=== PATIENT | female | born 1940 | race Caucasian/White ===

== ENCOUNTER 2024-03-16 22:46 | Inpatient (IN) | payer OTHER ==
[~2024-03-16] VITALS: Ht 167.6 cm; Wt 65.8 kg
[2024-03-16] MEDS: UNRESOLVED CLARIFICATION ENTRY XX STA (23:04)
[2024-03-16 23:26] LABS: BASO % 0.3 % (0.0-1.0); EOS # 0.1 10^3/uL (0.0-0.5); EOS % 0.9 % (0.0-3.0); HEMATOCRIT 39.2 % (36.0-47.0); HEMOGLOBIN 12.8 g/dl (12.0-15.5); LYMPH # 1.1 10^3/uL (1.5-5.0); LYMPH % 10.3 % (24.0-44.0); MEAN CORPUSCULAR HEMOGLOBIN 31.9 pg (27.0-33.0); MEAN CORPUSCULAR HGB CONC 32.7 g/dl (32.0-36.5); MEAN CORPUSCULAR VOLUME 97.8 fl (80.0-96.0); MONO # 0.6 10^3/uL (0.0-0.8); MONO % 5.7 % (2.0-8.0); NEUTROPHILS # 8.8 10^3/uL (1.5-8.5); NEUTROPHILS % 81.8 % (36.0-66.0); PLATELET COUNT, AUTOMATED 198 10^3/uL (150-450); RED BLOOD COUNT 4.01 10^6/uL (4.00-5.40); WHITE BLOOD COUNT 10.8 10^3/uL (4.0-10.0)
[2024-03-16 23:40] LABS: PROTHROMBIN TIME 12.9 SECONDS (12.5-14.5)
[2024-03-16 23:45] LABS: ALBUMIN 3.8 G/DL (3.2-5.2); BILIRUBIN,TOTAL 0.5 MG/DL (0.3-1.2); CALCIUM LEVEL 8.5 MG/DL (8.3-10.6); CK-MB VALUE MASS 2.8 NG/ML (<3.6); CREATININE FOR GFR 0.97 MG/DL (0.55-1.30); GLOMERULAR FILTRATION RATE 58.2 (>32); MB/CK RELATIVE INDEX 2.59 (< OR =4); POTASSIUM SERUM 4.4 MMOL/L (3.5-5.1); TOTAL PROTEIN 6.2 G/DL (5.7-8.2)
[2024-03-17] VITALS (29 sets, daily range): BP systolic 90–122; BP diastolic 52–64; PULSE 93; TEMP 96.9–99.1; O2SAT 89–96
[2024-03-17] MEDS: MORPHINE 2 MG/ML 1ML VIAL IV ONE (00:03)
[2024-03-17] MEDS: ONDANSETRON 4MG 2ML VIAL IV ONE (00:06)
[2024-03-17] MEDS ORDERED: ALEN70TA82 PO (01:42)
[2024-03-17] MEDS ORDERED: RA N1TAB PO (01:42)
[2024-03-17] MEDS ORDERED: ASPI-615 PO (01:42)
[2024-03-17] MEDS ORDERED: SIMV10TA21 PO (01:42)
[2024-03-17] MEDS ORDERED: IRON1TAB2 PO (01:42)
[2024-03-17] MEDS ORDERED: THERTAB52 PO (01:42)
[2024-03-17] MEDS ORDERED: SYMB16INH INH (01:42)
[2024-03-17] MEDS ORDERED: FLUO-365 PO (01:42)
[2024-03-17] MEDS ORDERED: MYRB25TA PO (01:42)
[2024-03-17] MEDS ORDERED: LOSA50TA28 PO (01:42)
[2024-03-17] MEDS ORDERED: HOME MED LIST COMPLETE! XX SCH (02:05)
[2024-03-17] MEDS: HYDROMORPHONE HCL 0.5 MG/ 0.5 ML SYRINGE IV PRN (02:29)
[2024-03-17] MEDS: UNRESOLVED CLARIFICATION ENTRY XX STA (04:34)
[2024-03-17] MEDS ORDERED: ACETAMINOPHEN 500 MG TAB PO PRN (07:20)
[2024-03-17] MEDS: SYMBICORT 160/4.5MCG INHALER 6GM INH SCH (07:30)
[2024-03-17] MEDS ORDERED: LOSARTAN 50MG TABLET PO SCH (09:00)
[2024-03-17] MEDS: ASPIRIN 81MG ENTERIC TABLET PO SCH (10:01)
[2024-03-17] MEDS: FERROUS SULFATE 325MG TAB PO SCH (10:01)
[2024-03-17] MEDS: KETOROLAC 30 MG/ML 1ML VIAL IV PRN (10:01)
[2024-03-17] MEDS: DOCUSATE SODIUM 100MG CAPSULE PO SCH (10:01)
[2024-03-17] MEDS: MAGNESIUM OXIDE 400MG TAB (MAG-OX) PO SCH (10:01)
[2024-03-17] MEDS: SENNA 8.6 MG TAB (SENOKOT) PO SCH ×2 (10:01→20:33)
[2024-03-17] MEDS: ENOXAPARIN 40MG/0.4ML SYRINGE (J1650 PER 10MG) SC SCH (10:02)
[2024-03-17] MEDS: ACETAMINOPHEN *IV* 1,000 MG in IV 1 EA IV ONE (13:21)
[2024-03-17] MEDS: METOPROLOL 5 MG/5 ML VIAL IV SCH (14:45)
[2024-03-17] MEDS: PANTOPRAZOLE 40MG VIAL IV SCH (15:20)
[2024-03-17 15:25] LABS: CK-MB VALUE MASS 14.6 NG/ML (<3.6)
[2024-03-17 15:27] LABS: MB/CK RELATIVE INDEX 3.13 (< OR =4)
[2024-03-17] MEDS: METOPROLOL TART 12.5 MG PER 1/2 TAB PO SCH (16:00)
[2024-03-17] MEDS: DIGOXIN 0.25 MG TAB PO ONE (17:31)
[2024-03-17 19:10] LABS: CK-MB VALUE MASS 11.7 NG/ML (<3.6)
[2024-03-17 19:16] LABS: MB/CK RELATIVE INDEX 2.57 (< OR =4)
[2024-03-17] MEDS: SIMVASTATIN 10 MG TAB PO SCH (20:33)
[2024-03-17] MEDS: FLUoxetine 20MG CAP PO SCH (20:33)
[2024-03-18] VITALS (23 sets, daily range): BP systolic 92–134; BP diastolic 52–60; TEMP 96.9–101.6; O2SAT 87–95
[2024-03-18 06:07] LABS: HEMATOCRIT 40.8 % (36.0-47.0); HEMOGLOBIN 12.7 g/dl (12.0-15.5); MEAN CORPUSCULAR HEMOGLOBIN 32.2 pg (27.0-33.0); MEAN CORPUSCULAR HGB CONC 31.1 g/dl (32.0-36.5); MEAN CORPUSCULAR VOLUME 103.3 fl (80.0-96.0); PLATELET COUNT, AUTOMATED 159 10^3/uL (150-450); RED BLOOD COUNT 3.95 10^6/uL (4.00-5.40); WHITE BLOOD COUNT 7.2 10^3/uL (4.0-10.0)
[2024-03-18 06:33] LABS: ALBUMIN 3.2 G/DL (3.2-5.2); BILIRUBIN,TOTAL 0.7 MG/DL (0.3-1.2); CREATININE FOR GFR 1.24 MG/DL (0.55-1.30); GLOMERULAR FILTRATION RATE 43.9 (>32); POTASSIUM SERUM 4.3 MMOL/L (3.5-5.1); TOTAL PROTEIN 5.4 G/DL (5.7-8.2)
[2024-03-18] MEDS: MORPHINE 4 MG/ML 1ML VIAL IV PRN (07:43)
[2024-03-18] MEDS: ACETAMINOPHEN TAB 650MG DOSE (2X325MG) PO PRN (07:44)
[2024-03-18] MEDS: DIGOXIN 0.25 MG TAB PO SCH (08:50)
[2024-03-19] VITALS (11 sets, daily range): BP systolic 101–117; BP diastolic 50–68; TEMP 97.2–98.9; O2SAT 82–93
[2024-03-19] MEDS: PANTOPRAZOLE 40MG TAB (PROTONIX) PO SCH (08:15)
[2024-03-19] MEDS: NORCO, ANEXSIA 5/325MG TABLET (HYDROcodone/ACETAMINOPHEN) PO SCH (09:44)
[2024-03-19] MEDS: METOPROLOL TART 12.5 MG PER 1/2 TAB PO SCH (18:40)
[2024-03-19] MEDS: DIGOXIN 0.25 MG TAB PO ONE (18:41)
[2024-03-19] MEDS ORDERED: METOPROLOL TART 12.5 MG PER 1/2 TAB PO SCH (21:00)
[2024-03-20] VITALS (19 sets, daily range): BP systolic 99–120; BP diastolic 54–58; TEMP 96.7–97.6; O2SAT 91–95
[2024-03-20] MEDS: DIGOXIN 0.25 MG TAB PO SCH (09:24)
[2024-03-20] MEDS: METOPROLOL TART 12.5 MG PER 1/2 TAB PO SCH (14:44)
[2024-03-20] MEDS: SENNA 8.6 MG TAB (SENOKOT) PO SCH (20:24)
[2024-03-21] VITALS: BP 128/62; TEMP 97.2; O2SAT 93
[2024-03-21 05:26] LABS: BASO % 0.3 % (0.0-1.0); EOS # 0.3 10^3/uL (0.0-0.5); EOS % 4.8 % (0.0-3.0); HEMOGLOBIN 10.6 g/dl (12.0-15.5); LYMPH # 0.6 10^3/uL (1.5-5.0); LYMPH % 9.8 % (24.0-44.0); MEAN CORPUSCULAR HEMOGLOBIN 31.7 pg (27.0-33.0); MEAN CORPUSCULAR HGB CONC 33.1 g/dl (32.0-36.5); MEAN CORPUSCULAR VOLUME 95.8 fl (80.0-96.0); MONO # 0.6 10^3/uL (0.0-0.8); MONO % 9.5 % (2.0-8.0); NEUTROPHILS # 4.9 10^3/uL (1.5-8.5); NEUTROPHILS % 75.1 % (36.0-66.0); PLATELET COUNT, AUTOMATED 185 10^3/uL (150-450); RED BLOOD COUNT 3.34 10^6/uL (4.00-5.40); WHITE BLOOD COUNT 6.5 10^3/uL (4.0-10.0)
[2024-03-21 05:58] LABS: DIGOXIN LEVEL 1.4 NG/ML (0.8-2.0)
[2024-03-21 05:59] LABS: CALCIUM LEVEL 8.1 MG/DL (8.3-10.6); CREATININE FOR GFR 1.19 MG/DL (0.55-1.30); POTASSIUM SERUM 4.3 MMOL/L (3.5-5.1)
[2024-03-21] MEDS: DIGOXIN 0.125 MG TAB PO SCH (10:13)
[2024-03-21 12:00] VITALS: BP 122/60; TEMP 97.2; O2SAT 92
[2024-03-21 13:04] VITALS: BP 122/56
[2024-03-21] MEDS ORDERED: COLA100C5 PO (14:07)
[2024-03-21] MEDS ORDERED: HYDR-3715 PO (14:07)
[2024-03-21] MEDS ORDERED: DIGO0.123 PO (14:07)
[2024-03-21] MEDS ORDERED: METO1TAB87 PO (14:07)
[2024-03-21] MEDS ORDERED: SENO8.6T5 PO (14:07)
[2024-03-21] MEDS ORDERED: KETO10TAB PO (14:09)
[2024-03-21] MEDS ORDERED: ACET1TAB55 PO (14:09)
== END 2024-03-21 16:19 | DRG 536 ==
LOC: M ED 22:46 → EDBD 22:46 → M ED INP 03-17 00:56 → M PCU 03-17 02:24
PROVIDERS: ADMIT Preventive Medicine Undersea and Hyperbaric Medicine; ATTEND Internal Medicine Nephrology
DX: S32.512A Fracture of superior rim of left pubis, initial encounter for closed fracture (principal); J96.11 Chronic respiratory failure with hypoxia; J44.9 Chronic obstructive pulmonary disease, unspecified; I10 Essential (primary) hypertension; I48.0 Paroxysmal atrial fibrillation; E78.5 Hyperlipidemia, unspecified; Z96.641 Presence of right artificial hip joint; Z96.651 Presence of right artificial knee joint; M81.0 Age-related osteoporosis without current pathological fracture; F41.9 Anxiety disorder, unspecified; F32.A Depression, unspecified; N32.81 Overactive bladder; W18.09XA Striking against other object with subsequent fall, initial encounter; Y92.009 Unspecified place in unspecified non-institutional (private) residence as the place of occurrence of the external cause; E61.1 Iron deficiency; Z88.0 Allergy status to penicillin; Z79.899 Other long term (current) drug therapy; Z79.82 Long term (current) use of aspirin

== ENCOUNTER → 2024-04-05 | Outpatient (CLI) | payer OTHER, MEDICARE ==
[~2024-04-05] MED LIST: ACET1TAB55 PO; ALEN70TA82 PO; ASPI-615 PO; COLA100C5 PO; DIGO0.123 PO; FLUO-365 PO; HYDR-3715 PO; IRON1TAB2 PO; KETO10TAB PO; LOSA50TA28 PO; METO1TAB87 PO; MYRB25TA PO; RA N1TAB PO; SENO8.6T5 PO; SIMV10TA21 PO; SYMB16INH INH; THERTAB52 PO
== END ==
LOC: M SOG 08:18
PROVIDERS: ATTEND Physician Assistant
DX: S32.502A Unspecified fracture of left pubis, initial encounter for closed fracture (principal); Y93.9 Activity, unspecified; Y92.9 Unspecified place or not applicable

== ENCOUNTER 2024-04-19 10:48 | Emergency (ER) | payer MEDICARE, OTHER ==
[~2024-04-19] VITALS: Ht 162.6 cm; Wt 63.2 kg
[2024-04-19 11:44] LABS: BASO % 0.5 % (0.0-1.0); EOS % 0.5 % (0.0-3.0); HEMATOCRIT 36.1 % (36.0-47.0); HEMOGLOBIN 11.8 g/dl (12.0-15.5); LYMPH # 0.7 10^3/uL (1.5-5.0); LYMPH % 8.4 % (24.0-44.0); MEAN CORPUSCULAR HEMOGLOBIN 32.7 pg (27.0-33.0); MEAN CORPUSCULAR HGB CONC 32.7 g/dl (32.0-36.5); MONO # 0.6 10^3/uL (0.0-0.8); MONO % 6.9 % (2.0-8.0); NEUTROPHILS # 6.9 10^3/uL (1.5-8.5); NEUTROPHILS % 83.2 % (36.0-66.0); PLATELET COUNT, AUTOMATED 396 10^3/uL (150-450); RED BLOOD COUNT 3.61 10^6/uL (4.00-5.40); WHITE BLOOD COUNT 8.2 10^3/uL (4.0-10.0)
[2024-04-19 12:09] LABS: INR 1.28; PROTHROMBIN TIME 15.6 SECONDS (12.5-14.5)
[2024-04-19 12:11] LABS: ALBUMIN 3.8 G/DL (3.2-5.2); ALKALINE PHOSPHATASE 141 U/L (46-116); ALT/SGPT 21 U/L (7.0-40); AST/SGOT 18 U/L (<34); BILIRUBIN,DIRECT 0.2 MG/DL (<0.4); BILIRUBIN,TOTAL 0.4 MG/DL (0.3-1.2); BLOOD UREA NITROGEN 13 MG/DL (9-23); CARBON DIOXIDE LEVEL 25 MMOL/L (20-31); CHLORIDE LEVEL 104 MMOL/L (98-107); CK-MB VALUE MASS 3.9 NG/ML (<3.6); CPK CREATINE PHOSPHOKINASE 73 U/L (34-145); CREATININE FOR GFR 0.67 MG/DL (0.55-1.30); GLOMERULAR FILTRATION RATE > 60.0 (>32); GLUCOSE, FASTING 103 MG/DL (74-106); MB/CK RELATIVE INDEX 5.34 (< OR =4); POTASSIUM SERUM 4.2 MMOL/L (3.5-5.1); SODIUM LEVEL 138 MMOL/L (136-145); TOTAL PROTEIN 6.7 G/DL (5.7-8.2)
[2024-04-19 12:27] LABS: APPEARANCE, URINE HAZY (CLEAR); BACTERIA, URINE AUTO 1+ (NEGATIVE); BILIRUBIN, URINE AUTO NEGATIVE (NEGATIVE); BLOOD, URINE BLOOD NEGATIVE (NEGATIVE); COLOR, URINE YELLOW (YELLOW); GLUCOSE, URINE (UA) AUTO NEGATIVE (NEGATIVE); KETONE, URINE AUTO 1+ mg/dL (NEGATIVE); LEUKOCYTE ESTERASE, URINE AUTO 2+ (NEGATIVE); MUCUS, URINE SMALL (NEGATIVE); NITRITE, URINE AUTO POSITIVE (NEGATIVE); PROTEIN, URINE AUTO NEGATIVE (NEGATIVE); RBC, URINE AUTO 3 /HPF (0-3); SPECIFIC GRAVITY URINE AUTO 1.013 (1.002-1.035); SQUAMOUS EPITHELIAL CELL UR AU 0 /HPF (0-6); UROBILINOGEN, URINE AUTO 0.2 mg/dL (0.0-2.0); WBC, URINE AUTO 37 /HPF (0-3)
[2024-04-19] MEDS ORDERED: LOSA50TA28 PO (13:10)
[2024-04-19] MEDS ORDERED: PANT40TA29 PO (13:10)
[2024-04-19] MEDS ORDERED: ELIQ2.5T PO (13:10)
[2024-04-19] MEDS: LevoFLOXacin IV 750 MG in IV 1 EA IV ONE (14:57)
[2024-04-19] MEDS: MORPHINE 4 MG/ML 1ML VIAL IV ONE (14:58)
[2024-04-19] MEDS: NS 1,000 ML IV SCH (15:05)
[2024-04-19 15:41] LABS: CK-MB VALUE MASS 3.8 NG/ML (<3.6)
[2024-04-19] MEDS: ONDANSETRON 4MG 2ML VIAL IV ONE ×2 (15:45→20:00)
[2024-04-19] MEDS ORDERED: LANO125T4 PO (17:40)
[2024-04-19] MEDS ORDERED: OXYC1TAB23 PO (17:40)
[2024-04-19] MEDS ORDERED: DOCU100C16 PO (17:40)
[2024-04-19] MEDS ORDERED: METO1TAB32 PO (17:40)
[2024-04-19] MEDS ORDERED: CALC600T86 PO (17:47)
[2024-04-19] MEDS ORDERED: ACET1TAB55 PO (17:47)
[2024-04-19] MEDS ORDERED: D3 H10002 PO (17:47)
[2024-04-19] MEDS ORDERED: HOME MED LIST COMPLETE! XX SCH (17:50)
[2024-04-19] MEDS ORDERED: PILL CUTTER 1 EACH XX PRN (21:00)
[2024-04-19] MEDS: SIMVASTATIN 10 MG TAB PO SCH (21:59)
[2024-04-19] MEDS: RAMELTEON 8 MG TAB (ROZEREM) PO ONE (21:59)
[2024-04-19] MEDS: FLUoxetine 20MG CAP PO SCH (21:59)
[2024-04-19] MEDS: DOCUSATE SODIUM 100MG CAPSULE PO SCH (21:59)
[2024-04-19] MEDS: PERCOCET 5MG/325MG TAB PO PRN (22:00)
[2024-04-19] MEDS: APIXABAN 2.5 MG TAB (ELIQUIS) PO SCH (22:00)
[2024-04-19] MEDS: SYMBICORT 160/4.5MCG INHALER 6GM INH SCH (22:19)
[2024-04-19 23:36] VITALS: BP 160/74
[2024-04-19] MEDS: METOPROLOL SUCC *XL* 12.5MG PER 1/2 TAB (TopROL *XL*) PO SCH (23:36)
[2024-04-20 07:57] VITALS: BP 159/74; TEMP 97.7; O2SAT 97
[2024-04-20] MEDS: MORPHINE 2 MG/ML 1ML VIAL IV PRN (07:57)
[2024-04-20] MEDS ORDERED: FERROUS SULFATE 325MG TAB PO SCH (09:00)
[2024-04-20] MEDS ORDERED: LOSARTAN 50MG TABLET PO SCH (09:00)
[2024-04-20] MEDS ORDERED: PANTOPRAZOLE 40MG TAB (PROTONIX) PO SCH (09:00)
[2024-04-20] MEDS ORDERED: DIGOXIN 0.125 MG TAB PO SCH (09:00)
== END 2024-04-20 08:02 | disposition short-term general hospital (02) ==
LOC: M ED 10:48 → EDBD 10:48 → M ED 04-20 08:02
DX: A41.9 Sepsis, unspecified organism (principal); N39.0 Urinary tract infection, site not specified; S32.512A Fracture of superior rim of left pubis, initial encounter for closed fracture; S32.592A Other specified fracture of left pubis, initial encounter for closed fracture; E78.5 Hyperlipidemia, unspecified; K21.9 Gastro-esophageal reflux disease without esophagitis; J44.9 Chronic obstructive pulmonary disease, unspecified; F41.9 Anxiety disorder, unspecified; F32.A Depression, unspecified; I48.91 Unspecified atrial fibrillation; Z96.641 Presence of right artificial hip joint; Z88.0 Allergy status to penicillin; Z96.651 Presence of right artificial knee joint; Y92.009 Unspecified place in unspecified non-institutional (private) residence as the place of occurrence of the external cause; Y93.89 Activity, other specified; Y99.9 Unspecified external cause status
CPT/HCPCS: 70450; 72192; 73502; 73552; 74021; 80047; 80048; 80076; 81001; 82550; 82553; 83605; 84484; 85025; 85610; 87040; 87088; 87186; 87486; 87581; 87633; 87798; 93005; 94640; 96361; 96374; 96375; 96376; 99285; J1956; J2405